=== PATIENT | male | born 1985 | race Two or more races ===

== ENCOUNTER 2021-03-15 14:50 | Emergency (ER) | payer MEDICAID ==
[~2021-03-15] VITALS: Ht 175.3 cm; Wt 86.4 kg
[2021-03-15 14:53] VITALS: BP 122/68
[2021-03-15] MEDS ORDERED: SULF1TAB49 PO (15:20)
== END 2021-03-15 15:39 | disposition home or self-care (01) ==
LOC: ER 14:51
DX: S80.11XA Contusion of right lower leg, initial encounter (principal); K13.0 Diseases of lips; M25.561 Pain in right knee; Z98.890 Other specified postprocedural states; Z79.2 Long term (current) use of antibiotics; X58.XXXA Exposure to other specified factors, initial encounter; Y93.89 Activity, other specified; Y92.89 Other specified places as the place of occurrence of the external cause; Y99.8 Other external cause status
CPT/HCPCS: 73590; 99283